=== PATIENT | female | born 1990 | race Caucasian/White ===

== ENCOUNTER 2019-03-04 20:22 | Observation (INO) | payer OTHER | END 2019-03-04 21:55 | disposition home or self-care (01) | LOC: FLD 20:22 | PROVIDERS: ADMIT Advanced Practice Midwife; ATTEND Advanced Practice Midwife | DX: O99.89 Other specified diseases and conditions complicating pregnancy, childbirth and the puerperium (principal); R51 Headache; Z3A.39 39 weeks gestation of pregnancy ==

== ENCOUNTER 2019-03-20 18:06 | Observation (INO) | payer OTHER | END 2019-03-20 20:41 | disposition home or self-care (01) | LOC: FLD 18:06 ==

== ENCOUNTER 2019-03-22 09:05 | Inpatient (IN) | payer OTHER | END 2019-03-25 14:28 | disposition home or self-care (01) | LOC: FLD 09:05 → FOB 03-23 07:30 ==